=== PATIENT | male | born 1970 | race Caucasian/White ===

== ENCOUNTER 2018-08-21 17:05 | Emergency (ER) | payer SELFPAY ==
[2018-08-21 17:15] VITALS: BP 160/93
[2018-08-21] MEDS ORDERED: TETRACAINE HCL 0.5% OPH SOLN 4 ML OS ONE (17:19)
--- NOTE | 2018-08-21 17:37 | ER Document Report ---
HPI - HPI Time Seen by Provider: 08/21/18 17:18 Pain Level: 3 Notes: Patient is a 47-year-old male who presents complaining of possible foreign body to his right eye x2 days. 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 Patient states that he wears prescription glasses, but no contact lenses. Patient states that he does have some watering to his eye, but no purulence. He has no other concerns or complaints. Denies any headache, fever, head injury, neck pain, changes in vision/speech/mentation/hearing, URI, sore throat, chest pain, palpitations, syncope, cough, shortness of breath, wheeze, dyspnea, abdominal pain, nausea/vomiting/diarrhea, urinary retention, dysuria, hematuria. - ROS Systems Reviewed and Negative: Yes All other systems reviewed and negative - CONSTITUTIONAL Constitutional: DENIES: Fever, Chills - EENT EENT: REPORTS: Eye problems. DENIES: Sore Throat, Ear Pain - NEURO Neurology: DENIES: Headache, Weakness, Vision blurred, Dizzinesss / Vertigo - CARDIOVASCULAR Cardiovascular: DENIES: Chest pain - RESPIRATORY Respiratory: DENIES: Trouble Breathing, Coughing - GASTROINTESTINAL Gastrointestinal: DENIES: Abdominal Pain, Black / Bloody Stools - URINARY Urinary: DENIES: Dysuria, Urgency, Frequency - MUSCULOSKELETAL Musculoskeletal: DENIES: Extremity pain Past Medical History - Social History Smoking Status: Current Every Day Smoker Chew tobacco use (# tins/day): No Frequency of alcohol use: Social Drug Abuse: None Family History: Reviewed & Not Pertinent Patient has suicidal ideation: No Patient has homicidal ideation: No Renal/ Medical History: Denies: Hx Peritoneal Dialysis Vertical Provider Document - CONSTITUTIONAL Agree With Documented VS: Yes Notes: PHYSICAL EXAMINATION: GENERAL: Well-appearing, well-nourished and in no acute distress. A&Ox4 HEAD: Atraumatic, normocephalic. EYES: Pupils equal round and reactive to light, extraocular movements intact, sclera anicteric, conjunctiva Rt shows very mild episcleritis b/l w. tearing. Lt conjunctiva wnl. Non-tender to palp of the globe and eye itself. No surrounding erythema or swelling noted. Visual acuity 20/40 (uncorrected--usually wears glasses) b/l and in each eye (performed by myself at bedside with my own eye chart). Wood's lamp/flourescein: + foreign body at 4 O'clock position noted. No abrasion, laceration, ulceration, or star sign noted. Foreign body removed w/o complication utilizing moistened q-tip. No obvious rust ring noted. ENT: Nares patent and without discharge. oropharynx clear without exudates. No tonsilar hypertrophy or erythema. Moist mucous membranes. Uvula midline. No palatine shift. No airway compromise. No drooling or hoarseness. NECK: Normal range of motion, supple without lymphadenopathy. No rigidity/meningismus. LUNGS: Breath sounds clear to auscultation bilaterally and equal. No wheezes rales or rhonchi. HEART: Regular rate and rhythm without murmurs, rubs, gallops. NEUROLOGICAL: Cranial nerves grossly intact. Normal speech, normal gait. Normal sensory, motor exams PSYCH: Normal mood, normal affect. SKIN: Warm, Dry, normal turgor, no rashes or lesions noted. - INFECTION CONTROL TRAVEL OUTSIDE OF THE [place] IN LAST 30 DAYS: No Course - Re-evaluation Re-evalutation: 08/21/18 17:37 Patient is an afebrile, well-hydrated, 47-year-old male who presents with foreign body to the right cornea without obvious rust ring. Vitals are acceptable without significant tachycardia, tachypnea, or hypoxia. PE is otherwise unremarkable. Foreign body was removed successfully without any complications with a Q-tip. Patient is nontoxic-appearing and is able to tolerate p.o. without difficulty. No labs or imaging warranted. Low suspicion for any retained corneal or lid foreign body, deep space infection including orbital cellulitis/abscess, acute glaucoma, penetrating globe injury, retinal detachment, meningitis, sepsis, fracture, compartment syndrome. I will send home with a prescription for erythromycin ointment to use as directed. Conservative measures otherwise for symptoms with proper handwashing. Recheck with your PCM in 3-5 days. Schedule follow-up with ophthalmology in the next 2 to 3 days. Return to the ED with any worsening/concerning symptoms otherwise as reviewed in discharge. Patient is in agreement. - Vital Signs Vital signs: Temp Pulse Resp BP Pulse Ox 98.1 F 77 16 160/93 H 97 08/21/18 17:14 08/21/18 17:14 08/21/18 17:14 08/21/18 17:14 08/21/18 17:14 Procedures - Eye Procedure Right Eye Irrigated w/ Saline (ccs): 30 - Patient tolerated procedure well without any complications Alcaine Drops Administered: Yes - tetracaine Fluorescein applied: Right Notes: 08/21/18 17:38 Foreign body removed using moistened Q-tip after tetracaine applied Discharge - Discharge Clinical Impression: Foreign body in cornea, right eye, initial encounter Condition: Stable Disposition: HOME, SELF-CARE Additional Instructions: Keep eyes clean Avoid scratching/touching eyes Wash hands regularly Use eye drops as directed Maintain adequate fluid intake tylenol/ibuprofen as needed over the counter cold medication as needed for symptoms F/u: with your PCM in 2-3 days for a recheck See ophthalmology in 2 to 3 days for further evaluation and management Return to the ED with any worsening symptoms and/or development of fever, headache, changes in vision, eye pain, worsening eye redness, redness around the eyes, purulent discharge, sore throat, facial swelling, neck pain/stiffness, chest pain, palpitations, syncope, shortness of breath, trouble breathing, abdominal pain, n/v/d, blood in stool/urine, dysuria, or other worsening symptoms that are concerning to you. Prescriptions: Erythromycin Base [Erythromycin Oph 1 gm Oint Ud] 1 applic OP QID #1 tube Forms: Elevated Blood Pressure, Smoking Cessation Education Referrals: MARGARET SAXENA MD [ACTIVE STAFF] - 08/23/18
== END 2018-08-21 18:00 | disposition home or self-care (01) ==
LOC: ER 17:05
DX: T15.01XA Foreign body in cornea, right eye, initial encounter (principal); X58.XXXA Exposure to other specified factors, initial encounter; Y93.89 Activity, other specified; F17.200 Nicotine dependence, unspecified, uncomplicated
CPT/HCPCS: 99283; 65220; J3490

== ENCOUNTER 2018-10-20 09:39 | Emergency (ER) | payer SELFPAY ==
[2018-10-20] MEDS ORDERED: IBUPROFEN 800 MG TABLET PO ONE (09:59)
--- NOTE | 2018-10-20 10:06 | ER Document Report ---
HPI - HPI Time Seen by Provider: 10/20/18 09:47 Pain Level: 3 Context: Patient is a 47-year-old male presents to the emergency department with a chief complaint of possible insect bite. Patient states he was seen here a few weeks ago with a possible spider bite to the forearm. Patient states he was placed on oral antibiotics and the area where the spider bite was located has significantly gotten better. Patient states he has not seen any spiders or actual insect that has bitten him but he has noticed a sore to his right medial forearm and to underneath the right axilla. Patient states last night he did pop all of these and was able to expel some pus. Patient denies history of MRSA. Patient denies IV drug use. Patient states his has also gotten these bite george on her skin that did require incision and drainage. Patient states he did call an pbx manager to come out to his house as they appear to be worse at night. Past Medical History - General Information source: Patient - Social History Smoking Status: Current Every Day Smoker Chew tobacco use (# tins/day): No Frequency of alcohol use: Occasional Drug Abuse: None Lives with: Family Family History: Reviewed & Not Pertinent Patient has suicidal ideation: No Patient has homicidal ideation: No - Past Medical History Cardiac Medical History: Reports: None Pulmonary Medical History: Reports: None EENT Medical History: Reports: None Neurological Medical History: Reports: None Endocrine Medical History: Reports: None Renal/ Medical History: Reports: None. Denies: Hx Hemodialysis, Hx Peritoneal Dialysis Malignancy Medical History: Reports None GI Medical History: Reports: None Musculoskeletal Medical History: Reports None Skin Medical History: Reports None Psychiatric Medical History: Reports: None Traumatic Medical History: Reports: None Infectious Medical History: Reports: None Past Surgical History: Reports: Hx Abdominal Surgery - hernia, Hx Orthopedic Surgery - Shoulder, jaw - Immunizations Immunizations up to date: Yes Vertical Provider Document - CONSTITUTIONAL Agree With Documented VS: Yes Exam Limitations: No Limitations General Appearance: No Apparent Distress - INFECTION CONTROL TRAVEL OUTSIDE OF THE [place] IN LAST 30 DAYS: No - HEENT HEENT: Atraumatic, Normocephalic, PERRLA - NECK Neck: Normal Inspection, Supple - RESPIRATORY Respiratory: Breath Sounds Normal, No Respiratory Distress - CARDIOVASCULAR Cardiovascular: Regular Rate, Regular Rhythm - GI/ABDOMEN Gastrointestinal: Abdomen Soft, Abdomen Non-Tender, Normal Bowel Sounds - NEURO Level of Consciousness: Awake, Alert, Appropriate - DERM Integumentary: Warm, Abscess Notes: There is a 1 cm area of erythema that is raised to the right medial forearm. There is also two 2cm x 2cm areas of erythema with a draining center underneath the right axilla. There is no surrounding cellulitis, ecchymosis or significant edema. These areas are raised and firm to touch. Course - Re-evaluation Re-evalutation: 10/20/18 10:05 Patient will require I&D of the abscesses to the axilla. 10/20/18 10:27 Incision and drainage was performed to the 2 small abscesses underneath the axilla. Patient did tolerate fairly well. There is very minimal purulent drainage with a small amount of red blood. I did inform the patient to use warm compresses as they may continue to drain over the next few days. Patient states that he would like a different antibiotic than the clindamycin as it was expensive. I did inform the patient that I will prescribe Keflex and Bactrim. I did inform the patient if he was unable to get both of these prescriptions filled to please use the Bactrim as it does cover for MRSA and staph. Patient verbalized understanding. Patient to return if symptoms worsen. Patient given 5 [place] tablets per prescription, aware not to drive or operate heavy [employer] while on this medication. - Vital Signs Vital signs: Temp Pulse Resp BP Pulse Ox 98.1 F 84 16 159/90 H 99 10/20/18 09:46 10/20/18 09:46 10/20/18 09:46 10/20/18 09:46 10/20/18 09:46 Procedures - Incision and Drainage Right Arm Time completed: 10:25 Type: Simple Anesthetic type: 1% Lidocaine mL's of anesthetic: 5 Blade size: 11 I&D procedure: Betadine prep applied, Shurclens applied Incision Method: Incision made by scalpel Amount/type of drainage: Small amount of blood drained Discharge - Discharge Clinical Impression: Abscess Condition: Stable Disposition: HOME, SELF-CARE Additional Instructions: Today you were seen in the emergency department for possible insect bite. It does appear that you have 2 abscesses underneath the right axilla which is your "armpit" and a very small 1 to the right forearm. These did require incision and drainage. Please use warm compresses to help promote drainage over the next few days. You will be placed on an antibiotic called Bactrim an Keflex that you need to take for 1 week. Please return if you develop high fever or chills, spreading of redness around the site, increase in swelling or tenderness. Please keep these areas clean and dry. You may use a gauze dressing over the next few days as it drains. Post Incision and Drainage You have had an incision made to allow drainage of an abscess. The incision must remain open so that pus and debris can drain from the wound. If the abscess cavity is large, packing is placed. This keeps the tissues from collapsing and trapping pus inside, while the body shrinks the cavity. The packing may need to be replaced every day or two. The physician will instruct you on the packing. Keep a bulky dressing over the area. Replace it if it becomes saturated with blood or pus. Do not disturb the packing (if present). You may shower and cleanse the area with gentle soap and warm water two or three times a day. Local warmth may be soothing, and may promote faster healing. Return if you develop high fever or chills, or if you note spreading redness, increasing swelling, or increasing tenderness. Abscess You have an abscess (boil). This a pus-forming infection, usually due to staph. Some boils may be left to drain on their own, but most require lancing. From the time the tender lump first appears, it may be three or four days before the abscess is ready to verenice. Local heat and rest help at this stage of treatment. An antibiotic may prevent spread of the infection. Once the abscess is opened, packing may be placed into it. This is done so pus is not sealed inside by premature closure of the cavity. The packing will be removed at your follow-up visit or you may be advised to remove it yourself at home. Sometimes this packing must be replaced a few times during healing. The wound will heal with surprisingly little scar. Depending on the size and location of an abscess, healing can take one to four weeks. You may shower and wash the area around the incision site two or three times a day. Antibiotics may be prescribed, but are usually not necessary after an abscess has been drained. If you develop fever, chilling, worsening pain, or increasing swelling in the area, call the doctor or return immediately. Prescriptions: Sulfamethoxazole/Trimethoprim [Bactrim Ds Tablet] 2 tab PO BID 7 Days #28 tablet Cephalexin Monohydrate [Keflex 500 mg Capsule] 500 mg PO Q6H 7 Days capsule Hydrocodone/Acetaminophen [[place] 5-325 mg Tablet] 1 tab PO Q6 #5 tablet Forms: Return to Work
[2018-10-20] MEDS ORDERED: CEPHALEXIN 500 MG CAPSULE PO ONE (10:24)
[2018-10-20] MEDS ORDERED: SULFAMETHOXAZOLE/TRIMETHOPRIM 800-160 MG TABLET PO ONE (10:24)
[2018-10-20 11:02] VITALS: BP 156/91
== END 2018-10-20 10:39 | disposition home or self-care (01) ==
LOC: ER 09:39
DX: L02.411 Cutaneous abscess of right axilla (principal); F17.200 Nicotine dependence, unspecified, uncomplicated
CPT/HCPCS: 99283